=== PATIENT | male | born 1965 ===

== ENCOUNTER 2021-12-05 10:41 | Emergency (ER) | payer SELFPAY ==
[~2021-12-05] VITALS: Ht 177.8 cm; Wt 75.0 kg
[2021-12-05 10:49] VITALS: BP 120/97
[2021-12-05 11:26] LABS: BASOPHILS # (AUTO) 0.1 X10'3 (0-0.2); EOSINOPHILS # (AUTO) 0.2 X10'3 (0-0.9); EOSINOPHILS % (AUTO) 2.4 % (0-6); LYMPHOCYTES # (AUTO) 1.1 X10'3 (1.1-4.8); LYMPHOCYTES % (AUTO) 12.3 % (21-51); MEAN CORPUSCULAR HGB CONC 33.4 g/dL (33.0-36.5); MEAN CORPUSCULAR VOLUME 86.9 FL (78-98); MEAN PLATELET VOLUME 8.1 FL (7.4-10.4); MONOCYTES # (AUTO) 0.9 X10'3 (0-0.9); MONOCYTES % (AUTO) 9.8 % (2-12); NEUTROPHILS # (AUTO) 6.9 X10'3 (1.8-7.7); NEUTROPHILS % (AUTO) 74.5 % (42-75); PLATELET COUNT 380 X10'3 (140-440); RED BLOOD COUNT 5.53 X10'6 (4.70-6.10); RED CELL DISTRIBUTION WIDTH 13.3 % (11.5-14.5); WHITE BLOOD COUNT 9.2 X10'3 (4.5-11.0)
[2021-12-05 11:46] LABS: ALANINE AMINOTRANSFERASE 34 U/L (12-78); ALBUMIN 3.7 G/DL (3.4-5.0); ALBUMIN/GLOBULIN RATIO 1.1 (1.1-1.5); ALKALINE PHOSPHATASE 93 IU/L (46-116); ANION GAP 10 (8-16); ASPARTATE AMINO TRANSFERASE 30 U/L (10-37); BILIRUBIN,TOTAL 0.5 MG/DL (0.1-1.0); BLOOD UREA NITROGEN 22 MG/DL (7-18); BUN/CREATININE RATIO 19.6 (5.4-32.0); CALCIUM 8.8 MG/DL (8.5-10.1); CHLORIDE 102 MMOL/L (99-107); CREATININE 1.12 MG/DL (0.60-1.10); GLUCOSE 75 MG/DL (70-104); SODIUM 140 MMOL/L (135-145); TOTAL CARBON DIOXIDE 27.7 MMOL/L (24-32); TOTAL PROTEIN 7.2 G/DL (6.4-8.2); eGFR 68 ML/MIN
[2021-12-05 11:51] LABS: POTASSIUM 4.2 MMOL/L (3.5-5.1)
--- NOTE | 2021-12-05 13:22 | NUR ---
ORACIO LEFT WITHOUT BEING SEEN. LAB DISCUSSED WITH DR COSTELLO. PT CALLED AND INFORMED OF THE NEED TO RETURN TO THE ED. PT AGREED
--- NOTE | 2021-12-05 17:46 | NUR ---
pT NEVER RETURNED TO ER. LACED ANOTHER CALL TO PT. NO ANSWER, UNABLE TO LEAVE VOICE MAIL
--- NOTE | 2021-12-05 18:04 | NUR ---
DR SCHULTZ NOTIFIED OF INABILITY TO REAH PATIENT
== END 2021-12-05 18:57 | disposition left against medical advice (07) ==
LOC: ER 10:42
DX: R06.02 Shortness of breath (principal); Z53.21 Procedure and treatment not carried out due to patient leaving prior to being seen by health care provider
CPT/HCPCS: 36415; 71045; 80053; 83880; 84484; 85025; 93005